=== PATIENT | male | born 1965 | race Caucasian/White ===

== ENCOUNTER → 2021-06-01 | Day surgery (SDC) | payer OTHER ==
[~2021-06-01] MED LIST: ASPIRIN81 MG PO; CRESTOR10 MG PO; FENTANYL CITRATE/PF 100MCG/2 ML INJ ONE; HYGROTON25 MG PO; LIDOCAINE HCL 2% LOCAL INJ 5 ML SDV VIAL INJ ONE; METFORMIN HCL500 MG PO; MIDAZOLAM HCL 2 MG/2 ML VIAL ONE; OMEGA 3 1,0001 EACH PO; PROPOFOL IV EMULSION 10 MG/ML 20 ML VIAL ONE; TYLENOL EXTRA500 MG PO; ZESTRIL10 MG PO
[2021-06-01 08:45] VITALS: BP 107/65
== END | disposition home or self-care (01) ==
LOC: OR 06:29 → EDSEX 08:00
PROVIDERS: ATTEND Internal Medicine Gastroenterology
DX: Z12.11 Encounter for screening for malignant neoplasm of colon (principal); K29.50 Unspecified chronic gastritis without bleeding; K64.8 Other hemorrhoids; D64.9 Anemia, unspecified; Z71.3 Dietary counseling and surveillance; E66.9 Obesity, unspecified; I10 Essential (primary) hypertension; E11.9 Type 2 diabetes mellitus without complications; E78.5 Hyperlipidemia, unspecified; F17.220 Nicotine dependence, chewing tobacco, uncomplicated; Z01.810 Encounter for preprocedural cardiovascular examination; Z01.812 Encounter for preprocedural laboratory examination; Z20.822 Contact with and (suspected) exposure to COVID-19; Z79.82 Long term (current) use of aspirin; Z79.84 Long term (current) use of oral hypoglycemic drugs; Z79.899 Other long term (current) drug therapy; Z68.32 Body mass index [BMI] 32.0-32.9, adult
CPT/HCPCS: 43239; 45378; 93005; J2001; J2250; J2704; J3010; U0002

== ENCOUNTER 2022-03-20 14:29 | Inpatient (IN) | payer OTHER ==
[~2022-03-20] VITALS: Ht 177.8 cm; Wt 99.8 kg
[~2022-03-20 14:29] MED LIST changes: -FENTANYL CITRATE/PF 100MCG/2 ML INJ ONE; -LIDOCAINE HCL 2% LOCAL INJ 5 ML SDV VIAL INJ ONE; -MIDAZOLAM HCL 2 MG/2 ML VIAL ONE; -PROPOFOL IV EMULSION 10 MG/ML 20 ML VIAL ONE
[2022-03-20] MEDS ORDERED: SODIUM CHLORIDE 0.9% 1000ML 1,000 ML IV STA (14:59)
[2022-03-20] MEDS ORDERED: ONDANSETRON HCL INJ 2MG/ML 2ML 2 MG/ML VIAL IV PRN (15:00)
[2022-03-20 15:06] LABS: BASOPHILS % 0.1 % (0.0-1.0); EOSINOPHILS # (AUTO) 0.2 (0.0-0.4); EOSINOPHILS % 0.9 % (0.0-6.0); HEMATOCRIT 34.4 % (38.2-49.6); HEMOGLOBIN 12.2 g/dL (14.0-18.0); LYMPHOCYTES % 6.2 % (18.0-39.1); MEAN CORPUSCULAR HEMOGLOBIN 29.5 pg (28-32); MEAN CORPUSCULAR HGB CONC 35.5 g/dL (31-35); MEAN CORPUSCULAR VOLUME 83.1 fL (81-99); MONOCYTES % 6.5 % (4.4-11.3); NEUTROPHILS # (AUTO) 13.6 (2.1-6.9); NEUTROPHILS % 85.7 % (38.7-80.0); PLATELET COUNT 177 x10e3/uL (140-360); RED BLOOD COUNT 4.14 x10e6/uL (4.3-5.7); RED CELL DISTRIBUTION WIDTH 11.9 % (11.7-14.4)
[2022-03-20] MEDS ORDERED: CHLORPROMAZINE HCL INJ 25 MG/ML AMP IM ONE (15:15)
[2022-03-20 15:20] LABS: ALBUMIN 3.1 g/dL (3.5-5.0); ALBUMIN/GLOBULIN RATIO 0.8 (0.8-2.0); ANION GAP 14.4 mmol/L (8-16); CALCIUM 9.4 mg/dL (8.4-10.2); CREATININE, SERUM 0.84 mg/dL (0.72-1.25); POTASSIUM 3.4 mmol/L (3.5-5.1)
[2022-03-20 15:58] LABS: CLARITY,URINE SL CLOUDY (CLEAR); COLOR,URINE YELLOW (YELLOW); KETONES,URINE NEGATIVE (NEGATIVE); LEUKOCYTE ESTERASE ,URINE NEGATIVE (NEGATIVE); NITRITE,URINE NEGATIVE (NEGATIVE); PROTEIN,URINE DIPSTICK NEGATIVE (NEGATIVE); URINE UROBILINOGEN 0.2 mg/dL (0.2 - 1)
[2022-03-20] MEDS ORDERED: POTASSIUM CHLORIDE 20 MEQ TAB CR PO ONE (17:30)
[2022-03-20 20:00] VITALS: BP 117/62
[2022-03-20 20:15] VITALS: BP 127/66
[2022-03-20] MEDS: ONDANSETRON HCL INJ 2MG/ML 2ML 2 MG/ML VIAL IV PRN (20:33)
[2022-03-20 21:00] VITALS: BP 129/63
[2022-03-20] MEDS ORDERED: DESMOPRESSIN ACETATE 4 MCG/ML VIAL SQ ONE (21:45)
[2022-03-20] MEDS ORDERED: SODIUM CHLORIDE 0.45% 1,000 ML IV SCH (21:45)
[2022-03-20 22:00] VITALS: BP 115/70
[2022-03-20] MEDS: DEXTROSE 5% 1,000 ML IV SCH (22:30)
[2022-03-20 23:00] VITALS: BP 101/60
[2022-03-20] MEDS: DESMOPRESSIN ACETATE 4 MCG/ML VIAL IV ONE (23:55)
[2022-03-21] VITALS (21 sets, daily range): BP systolic 109–155; BP diastolic 41–98
[2022-03-21 04:24] LABS: BASOPHILS % 0.2 % (0.0-1.0); EOSINOPHILS # (AUTO) 0.1 (0.0-0.4); EOSINOPHILS % 1.3 % (0.0-6.0); HEMATOCRIT 33.7 % (38.2-49.6); HEMOGLOBIN 11.6 g/dL (14.0-18.0); LYMPHOCYTES # (AUTO) 0.8 (1.0-3.2); LYMPHOCYTES % 7.3 % (18.0-39.1); MEAN CORPUSCULAR HEMOGLOBIN 29.1 pg (28-32); MEAN CORPUSCULAR HGB CONC 34.4 g/dL (31-35); MEAN CORPUSCULAR VOLUME 84.5 fL (81-99); MONOCYTES # (AUTO) 0.6 (0.2-0.8); MONOCYTES % 5.5 % (4.4-11.3); NEUTROPHILS # (AUTO) 8.8 (2.1-6.9); NEUTROPHILS % 85.3 % (38.7-80.0); PLATELET COUNT 182 x10e3/uL (140-360); RED BLOOD COUNT 3.99 x10e6/uL (4.3-5.7); RED CELL DISTRIBUTION WIDTH 11.9 % (11.7-14.4)
[2022-03-21 04:44] LABS: ANION GAP 16.8 mmol/L (8-16); CALCIUM 9.5 mg/dL (8.4-10.2); CREATININE, SERUM 0.85 mg/dL (0.72-1.25); POTASSIUM 3.8 mmol/L (3.5-5.1)
[2022-03-21] MEDS ORDERED: DEXTROSE 5% 500 ML IV SCH (05:15)
[2022-03-21] MEDS ORDERED: DEXTROSE 50% SYRINGE 50 ML IV PRN (05:45)
[2022-03-21] MEDS: CHLORPROMAZINE HCL 25 MG TAB PO PRN ×2 (06:23→21:46)
[2022-03-21] MEDS: DESMOPRESSIN ACETATE 4 MCG/ML VIAL IV ONE (06:28)
[2022-03-21] MEDS: DEXTROSE 5% 1,000 ML IV SCH ×4 (06:30→16:10)
[2022-03-21 06:35] LABS: BILIRUBIN,DIRECT 0.4 mg/dL (0.0-0.5)
[2022-03-21] MEDS: INSULIN LISPRO 100 UNIT/1 ML 3ML VIAL SQ SCH ×4 (07:30→21:44)
[2022-03-21 09:12] LABS: OSMOLALITY,SERUM OSMOMETER 236 mOsmol/kg (275-295)
[2022-03-21] MEDS ORDERED: Morphine 4mg INJECTION 4 MG/ML INJ ONE (13:19)
[2022-03-21] MEDS ORDERED: DESMOPRESSIN ACETATE 4 MCG/ML VIAL IV SCH (16:00)
[2022-03-22] VITALS (14 sets, daily range): BP systolic 118–159; BP diastolic 59–121
[2022-03-22] MEDS: DEXTROSE 5% 1,000 ML IV SCH (03:42)
[2022-03-22 04:59] LABS: BASOPHILS % 0.4 % (0.0-1.0); EOSINOPHILS # (AUTO) 0.3 (0.0-0.4); EOSINOPHILS % 3.7 % (0.0-6.0); HEMATOCRIT 30.1 % (38.2-49.6); HEMOGLOBIN 10.9 g/dL (14.0-18.0); LYMPHOCYTES % 14.6 % (18.0-39.1); MEAN CORPUSCULAR HEMOGLOBIN 29.5 pg (28-32); MEAN CORPUSCULAR HGB CONC 36.2 g/dL (31-35); MEAN CORPUSCULAR VOLUME 81.6 fL (81-99); MONOCYTES # (AUTO) 0.4 (0.2-0.8); MONOCYTES % 5.8 % (4.4-11.3); NEUTROPHILS # (AUTO) 5.3 (2.1-6.9); NEUTROPHILS % 74.8 % (38.7-80.0); PLATELET COUNT 179 x10e3/uL (140-360); RED BLOOD COUNT 3.69 x10e6/uL (4.3-5.7); RED CELL DISTRIBUTION WIDTH 12.1 % (11.7-14.4)
[2022-03-22 05:24] LABS: ALBUMIN 2.7 g/dL (3.5-5.0); ALBUMIN/GLOBULIN RATIO 0.8 (0.8-2.0); ANION GAP 14.7 mmol/L (8-16); CALCIUM 8.6 mg/dL (8.4-10.2); CREATININE, SERUM 0.69 mg/dL (0.72-1.25); MAGNESIUM 1.8 MG/DL (1.3-2.1); POTASSIUM 3.7 mmol/L (3.5-5.1)
[2022-03-22] MEDS: CHLORPROMAZINE HCL 25 MG TAB PO PRN ×2 (06:13→20:31)
[2022-03-22] MEDS: INSULIN LISPRO 100 UNIT/1 ML 3ML VIAL SQ SCH ×4 (07:30→21:00)
[2022-03-22] MEDS: METRONIDAZOLE 500MG/NS 100ML 100 ML IV SCH ×2 (08:10→16:52)
[2022-03-22] MEDS ORDERED: DEXTROSE 5%/0.9% SOD CHL 1,000 ML IV SCH (09:15)
[2022-03-22] MEDS: ONDANSETRON HCL INJ 2MG/ML 2ML 2 MG/ML VIAL IV PRN ×2 (14:35→20:26)
[2022-03-22] MEDS: SODIUM CHLORIDE 1 GM TAB PO SCH ×2 (16:52→21:04)
[2022-03-22] MEDS: HYDROCODONE/APAP 5MG-325MG TAB PO PRN (20:25)
[2022-03-22 20:27] LABS: THYROID STIMULATING HORMONE 0.194 uIU/mL (0.350-4.940)
[2022-03-23] VITALS (15 sets, daily range): BP systolic 130–202; BP diastolic 59–126
[2022-03-23] MEDS: METRONIDAZOLE 500MG/NS 100ML 100 ML IV SCH ×4 (00:12→23:51)
[2022-03-23] MEDS: HYDROCODONE/APAP 5MG-325MG TAB PO PRN ×3 (00:35→09:39)
[2022-03-23] MEDS: ONDANSETRON HCL INJ 2MG/ML 2ML 2 MG/ML VIAL IV PRN ×3 (00:35→09:39)
[2022-03-23 04:49] LABS: BASOPHILS % 0.6 % (0.0-1.0); EOSINOPHILS # (AUTO) 0.2 (0.0-0.4); EOSINOPHILS % 3.5 % (0.0-6.0); HEMATOCRIT 36.7 % (38.2-49.6); HEMOGLOBIN 12.4 g/dL (14.0-18.0); LYMPHOCYTES # (AUTO) 1.3 (1.0-3.2); LYMPHOCYTES % 20.6 % (18.0-39.1); MEAN CORPUSCULAR HEMOGLOBIN 29.1 pg (28-32); MEAN CORPUSCULAR HGB CONC 33.8 g/dL (31-35); MEAN CORPUSCULAR VOLUME 86.2 fL (81-99); MONOCYTES # (AUTO) 0.5 (0.2-0.8); MONOCYTES % 7.9 % (4.4-11.3); NEUTROPHILS # (AUTO) 4.2 (2.1-6.9); NEUTROPHILS % 66.8 % (38.7-80.0); PLATELET COUNT 220 x10e3/uL (140-360); RED BLOOD COUNT 4.26 x10e6/uL (4.3-5.7); RED CELL DISTRIBUTION WIDTH 11.9 % (11.7-14.4)
[2022-03-23 05:10] LABS: ALBUMIN/GLOBULIN RATIO 0.7 (0.8-2.0); ANION GAP 15.1 mmol/L (8-16); CALCIUM 9.6 mg/dL (8.4-10.2); CREATININE, SERUM 0.73 mg/dL (0.72-1.25); MAGNESIUM 2.1 MG/DL (1.3-2.1); POTASSIUM 4.1 mmol/L (3.5-5.1)
[2022-03-23] MEDS: INSULIN LISPRO 100 UNIT/1 ML 3ML VIAL SQ SCH ×4 (07:30→21:43)
[2022-03-23] MEDS ORDERED: DESMOPRESSIN ACETATE 4 MCG/ML VIAL IV ONE (08:30)
[2022-03-23 08:38] LABS: FREE T4 (FREE THYROXINE) 1.05 ng/dL (0.8-1.8)
[2022-03-23] MEDS: DEXTROSE 5% 1,000 ML IV SCH ×3 (09:06→23:51)
[2022-03-23] MEDS ORDERED: SEVOFLURANE INHAL SOLN 250 ML PEN BTL ONE (11:29)
[2022-03-23] MEDS ORDERED: POVIDONE IODINE 0.05% 0.05 % ML PO ONE (11:29)
[2022-03-23] MEDS ORDERED: ACETAMINOPHEN 1000 MG/100 ML IV ONE (11:29)
[2022-03-23] MEDS ORDERED: GLYCOPYRROLATE INJ 0.2 MG/ML VIAL ONE (11:29)
[2022-03-23] MEDS ORDERED: PROPOFOL IV EMULSION 10 MG/ML 20 ML VIAL ONE (11:29)
[2022-03-23] MEDS ORDERED: ONDANSETRON HCL INJ 2MG/ML 2ML 2 MG/ML VIAL ONE (11:29)
[2022-03-23] MEDS ORDERED: NEOSTIGMINE 1 MG/ML 10ML VIAL ONE (11:29)
[2022-03-23] MEDS ORDERED: DEXAMETHASONE SOD PHOS INJ 4 MG/ML SDV ONE (11:29)
[2022-03-23] MEDS ORDERED: LIDOCAINE HCL 2% LOCAL INJ 5 ML SDV VIAL INJ ONE (11:29)
[2022-03-23] MEDS ORDERED: ROCURONIUM BROMIDE 10 MG/ML 5ML VIAL IV ONE (11:29)
[2022-03-23] MEDS ORDERED: MIDAZOLAM HCL 2 MG/2 ML VIAL ONE (13:24)
[2022-03-23] MEDS ORDERED: FENTANYL CITRATE/PF 100MCG/2 ML INJ ONE ×2 (13:24→16:56)
[2022-03-23] MEDS ORDERED: BUPIVACAINE 0.25% 30ML SDV ONE (13:51)
[2022-03-23] MEDS ORDERED: SCOPOLAMINE 1 MG PATCH ONE (13:51)
[2022-03-23] MEDS ORDERED: ONDANSETRON HCL INJ 2MG/ML 2ML 2 MG/ML VIAL IV PRN (16:15)
[2022-03-23] MEDS ORDERED: ACETAMINOPHEN 1000 MG/100 ML IV PRN (18:00)
[2022-03-23] MEDS: HYDROMORPHONE 1MG/1ML INJ IV PRN ×2 (18:36→21:50)
[2022-03-23] MEDS: CHLORPROMAZINE HCL 25 MG TAB PO PRN (18:48)
[2022-03-23] MEDS: HYDROCODONE/APAP 7.5MG-325MG 1 EA TAB PO PRN (21:55)
[2022-03-24] VITALS (12 sets, daily range): BP systolic 117–159; BP diastolic 52–83
[2022-03-24] MEDS: HYDROCODONE/APAP 7.5MG-325MG 1 EA TAB PO PRN ×4 (01:42→23:30)
[2022-03-24] MEDS: HYDROMORPHONE 1MG/1ML INJ IV PRN ×4 (01:42→19:53)
[2022-03-24 07:27] LABS: ALBUMIN/GLOBULIN RATIO 0.8 (0.8-2.0); ANION GAP 14.2 mmol/L (8-16); CALCIUM 9.4 mg/dL (8.4-10.2); CREATININE, SERUM 0.72 mg/dL (0.72-1.25); POTASSIUM 4.2 mmol/L (3.5-5.1)
[2022-03-24] MEDS: INSULIN LISPRO 100 UNIT/1 ML 3ML VIAL SQ SCH ×4 (07:30→19:55)
[2022-03-24] MEDS: METRONIDAZOLE 500MG/NS 100ML 100 ML IV SCH ×2 (08:12→16:26)
[2022-03-24] MEDS: CHLORPROMAZINE HCL 25 MG TAB PO PRN (08:14)
[2022-03-24 08:18] LABS: BASOPHILS % 0.2 % (0.0-1.0); EOSINOPHILS # (AUTO) 0.1 (0.0-0.4); EOSINOPHILS % 0.7 % (0.0-6.0); HEMATOCRIT 35.2 % (38.2-49.6); HEMOGLOBIN 11.9 g/dL (14.0-18.0); LYMPHOCYTES # (AUTO) 1.4 (1.0-3.2); LYMPHOCYTES % 12.4 % (18.0-39.1); MEAN CORPUSCULAR HEMOGLOBIN 29.2 pg (28-32); MEAN CORPUSCULAR HGB CONC 33.8 g/dL (31-35); MEAN CORPUSCULAR VOLUME 86.5 fL (81-99); MONOCYTES # (AUTO) 0.9 (0.2-0.8); MONOCYTES % 7.8 % (4.4-11.3); NEUTROPHILS % 77.3 % (38.7-80.0); PLATELET COUNT 277 x10e3/uL (140-360); RED BLOOD COUNT 4.07 x10e6/uL (4.3-5.7); RED CELL DISTRIBUTION WIDTH 11.9 % (11.7-14.4)
[2022-03-25] VITALS (10 sets, daily range): BP systolic 115–149; BP diastolic 76–89
[2022-03-25] MEDS ORDERED: SODIUM CHLORIDE 0.9% 250ML 250 ML ONE
[2022-03-25] MEDS: HYDROCODONE/APAP 7.5MG-325MG 1 EA TAB PO PRN ×5 (04:06→19:54)
[2022-03-25 05:16] LABS: BASOPHILS # (AUTO) 0.1 (0.0-0.1); BASOPHILS % 0.6 % (0.0-1.0); EOSINOPHILS # (AUTO) 0.2 (0.0-0.4); EOSINOPHILS % 2.6 % (0.0-6.0); HEMATOCRIT 36.1 % (38.2-49.6); HEMOGLOBIN 12.3 g/dL (14.0-18.0); LYMPHOCYTES % 22.2 % (18.0-39.1); MEAN CORPUSCULAR HEMOGLOBIN 29.5 pg (28-32); MEAN CORPUSCULAR HGB CONC 34.1 g/dL (31-35); MEAN CORPUSCULAR VOLUME 86.6 fL (81-99); MONOCYTES # (AUTO) 0.8 (0.2-0.8); MONOCYTES % 8.7 % (4.4-11.3); NEUTROPHILS # (AUTO) 5.7 (2.1-6.9); NEUTROPHILS % 63.3 % (38.7-80.0); PLATELET COUNT 293 x10e3/uL (140-360); RED BLOOD COUNT 4.17 x10e6/uL (4.3-5.7); RED CELL DISTRIBUTION WIDTH 11.9 % (11.7-14.4)
[2022-03-25 05:43] LABS: ALBUMIN 3.2 g/dL (3.5-5.0); ALBUMIN/GLOBULIN RATIO 0.9 (0.8-2.0); ANION GAP 15.6 mmol/L (8-16); CALCIUM 10.1 mg/dL (8.4-10.2); CREATININE, SERUM 0.82 mg/dL (0.72-1.25); POTASSIUM 4.6 mmol/L (3.5-5.1)
[2022-03-25] MEDS: INSULIN LISPRO 100 UNIT/1 ML 3ML VIAL SQ SCH ×4 (08:40→20:13)
[2022-03-25] MEDS: METRONIDAZOLE 500MG/NS 100ML 100 ML IV SCH ×4 (09:20→23:35)
[2022-03-25] MEDS ORDERED: ENOXAPARIN SOD INJ 40 MG/0.4 ML SYR SC SCH (17:00)
[2022-03-26 00:17] VITALS: BP 143/86
[2022-03-26] MEDS: HYDROCODONE/APAP 7.5MG-325MG 1 EA TAB PO PRN ×2 (00:18→08:07)
[2022-03-26 04:00] VITALS: BP 153/84
[2022-03-26 04:58] LABS: BASOPHILS # (AUTO) 0.1 (0.0-0.1); BASOPHILS % 0.6 % (0.0-1.0); EOSINOPHILS # (AUTO) 0.2 (0.0-0.4); EOSINOPHILS % 2.8 % (0.0-6.0); HEMOGLOBIN 12.6 g/dL (14.0-18.0); LYMPHOCYTES # (AUTO) 2.3 (1.0-3.2); LYMPHOCYTES % 28.6 % (18.0-39.1); MEAN CORPUSCULAR HEMOGLOBIN 29.4 pg (28-32); MEAN CORPUSCULAR VOLUME 84.1 fL (81-99); MONOCYTES # (AUTO) 0.7 (0.2-0.8); MONOCYTES % 8.1 % (4.4-11.3); NEUTROPHILS # (AUTO) 4.4 (2.1-6.9); NEUTROPHILS % 54.5 % (38.7-80.0); PLATELET COUNT 292 x10e3/uL (140-360); RED BLOOD COUNT 4.28 x10e6/uL (4.3-5.7); RED CELL DISTRIBUTION WIDTH 12.5 % (11.7-14.4)
[2022-03-26 05:23] LABS: ANION GAP 15.5 mmol/L (8-16); CALCIUM 10.2 mg/dL (8.4-10.2); CREATININE, SERUM 0.82 mg/dL (0.72-1.25); POTASSIUM 4.5 mmol/L (3.5-5.1)
[2022-03-26 06:47] LABS: FERRITIN 409.41 ng/mL (21.81-274.66)
[2022-03-26] MEDS ORDERED: HYDROCODON-ACE1 EA11 PO (07:17)
[2022-03-26 07:29] VITALS: BP 145/87
[2022-03-26] MEDS: METRONIDAZOLE 500MG/NS 100ML 100 ML IV SCH (08:14)
[2022-03-26] MEDS: INSULIN LISPRO 100 UNIT/1 ML 3ML VIAL SQ SCH (08:15)
[2022-03-26 08:19] VITALS: BP 145/87
[2022-03-26] MEDS ORDERED: AMLODIPINE BESYLATE 5 MG TAB PO SCH (09:00)
[2022-03-26] MEDS ORDERED: SENNOSIDES 8.6 MG TAB PO SCH (09:00)
[2022-03-26] MEDS ORDERED: LISINOPRIL 20 MG TAB PO SCH (09:00)
[2022-03-26] MEDS ORDERED: DOCUSATE SODIUM 100 MG CAP PO SCH (09:00)
[2022-03-26 11:21] VITALS: BP 131/76
[2022-03-26] MEDS ORDERED: ONDANSETRON HCL 4 MG ORAL DISINTEGRATING TAB PO PRN (11:30)
[2022-03-26] MEDS ORDERED: METRONIDAZOLE 500 MG TAB PO SCH (16:00)
== END 2022-03-26 11:38 | disposition home or self-care (01) | DRG 418 ==
LOC: ER 14:40 → ERHOLD 16:01 → ICU 19:55 → MED/SURG2 03-24 16:52
PROVIDERS: ADMIT Internal Medicine; ATTEND Internal Medicine
PROC: 0FT44ZZ Resection of Gallbladder, Percutaneous Endoscopic Approach (ICD-10-PCS; principal; 2022-03-23 14:02)
DX: K80.00 Calculus of gallbladder with acute cholecystitis without obstruction (principal); E22.2 Syndrome of inappropriate secretion of antidiuretic hormone; K82.A1 Gangrene of gallbladder in cholecystitis; Z20.822 Contact with and (suspected) exposure to COVID-19; E87.6 Hypokalemia; T50.2X5A Adverse effect of carbonic-anhydrase inhibitors, benzothiadiazides and other diuretics, initial encounter; E11.9 Type 2 diabetes mellitus without complications; I10 Essential (primary) hypertension; E05.90 Thyrotoxicosis, unspecified without thyrotoxic crisis or storm; E66.09 Other obesity due to excess calories; Z68.31 Body mass index [BMI] 31.0-31.9, adult; M17.11 Unilateral primary osteoarthritis, right knee; Z96.651 Presence of right artificial knee joint; R06.6 Hiccough
CPT/HCPCS: 36415; 76705; 78227; 80048; 80053; 80076; 81001; 82607; 82728; 82746; 82948; 83540; 83690; 83735; 83930; 83935; 84295; 84300; 84439; 84443; 84466; 84479; 84480; 84484; 85025; 86704; 88304; 93005; 94799; 96372; 99284; A9537; C1766; J0696; J1100; J1170; J1650; J2001; J2250; J2270; J2405; J2710; J3010; J3230; J7030; J7042; J7050; J7070